=== PATIENT | female | born 1960 | race Caucasian/White ===

== ENCOUNTER 2020-09-16 04:48 | Emergency (ER) | payer BC ==
[~2020-09-16] VITALS: Ht 154.9 cm; Wt 58.5 kg
--- NOTE | 2020-09-16 05:00 | NUR ---
Dr. Burnham at bedside for MSE.
--- NOTE | 2020-09-16 05:18 | NUR ---
Xray at bedside.
--- NOTE | 2020-09-16 05:38 | NUR ---
Patient discharged to home in stable condition. Written and verbal after care instructions given. Patient verbalizes understanding of instructions. Stressed follow up or return to ER for worsening s/s. Patient out of ER with steady gait, no acute signs of distress, VSS, all belongings taken, provided a copy of xray results.
[2020-09-16 05:39] VITALS: BP 126/84
== END 2020-09-16 05:39 | disposition home or self-care (01) ==
LOC: ER 04:48
DX: R06.02 Shortness of breath (principal); G89.29 Other chronic pain; J44.9 Chronic obstructive pulmonary disease, unspecified; Z88.5 Allergy status to narcotic agent; Z88.0 Allergy status to penicillin; Z91.040 Latex allergy status; Z86.16 Personal history of COVID-19
CPT/HCPCS: 71045; A4663

== ENCOUNTER 2024-05-19 11:15 | Emergency (ER) | payer OTHER ==
[~2024-05-19] VITALS: Ht 157.5 cm; Wt 59.0 kg
[2024-05-19] MEDS ORDERED: ONDANSETRON 4 MG/2 ML VIAL ONE (11:47)
[2024-05-19] MEDS ORDERED: HYDROMORPHONE 1 MG/1 ML DISP.SYRIN ONE (11:48)
[2024-05-19 12:00] LABS: BASOPHILS % (AUTO) 0.4 % (0.0-2.0); EOSINOPHILS # (AUTO) 0.2 K/uL (0.0-0.7); EOSINOPHILS % (AUTO) 2.1 % (0.0-7.0); HEMATOCRIT 37.6 % (31.2-41.9); HEMOGLOBIN 12.8 g/dL (10.9-14.3); LYMPHOCYTES # (AUTO) 2.3 K/uL (0.8-4.8); LYMPHOCYTES % (AUTO) 22.8 % (20.5-51.5); MEAN CORPUSCULAR HEMOGLOBIN 30.9 uug (24.7-32.8); MEAN CORPUSCULAR HGB CONC 34 g/dL (32.3-35.6); MEAN CORPUSCULAR VOLUME 90.7 fL (75.5-95.3); MONOCYTES # (AUTO) 1.2 K/uL (0.1-1.30); MONOCYTES % (AUTO) 11.4 % (0.0-11.0); NEUTROPHILS # (AUTO) 6.5 K/uL (1.8-8.9); NEUTROPHILS % (AUTO) 63.3 % (38.5-71.5); PLATELET COUNT (AUTO) 291 K/uL (179-408); RED BLOOD CELL COUNT(AUTO) 4.14 MIL/uL (3.63-4.92); RED CELL DISTRIBUTION WIDTH 12.6 % (12.3-17.7); WHITE BLOOD COUNT (AUTO) 10.3 K/uL (3.8-11.8)
[2024-05-19 12:02] LABS: *BILIRUBIN,URIN NEGATIVE (NEGATIVE); *CLARITY,URINE CLEAR (CLEAR); *COLOR,URINE YELLOW (YELLOW); *KETONES,URINE TRACE (NEGATIVE); *PROTEIN,URINE 2+ (NEGATIVE); LEUKOCYTE ESTERASE ,URINE 1+ (NEGATIVE); NITRITE, URINE NEGATIVE (NEGATIVE); PH,URINE 6.5 (5.0-8.0); UGLUCOSE NEGATIVE (NEGATIVE)
[2024-05-19] MEDS: ONDANSETRON 4 MG/2 ML VIAL IV ONE (12:06)
[2024-05-19] MEDS: HYDROMORPHONE 1 MG/1 ML DISP.SYRIN IV ONE (12:06)
[2024-05-19 12:08] LABS: CALCIUM 8.9 mg/dL (8.5-10.1); CREATININE 0.7 mg/dL (0.6-1.3); MAGNESIUM 1.8 mg/dL (1.8-2.4); POTASSIUM 3.5 mmol/L (3.5-5.1)
[2024-05-19 12:18] LABS: DIFFERENTIAL COMMENT 1
[2024-05-19 12:19] LABS: *BLOOD, URINE TRACE (NEGATIVE); WBC,URINE 20-50 /HPF (0-3)
[2024-05-19 12:20] LABS: BACTERIA,URINE FEW /HPF (NONE SEEN); SQUAMOUS EPITHELIAL CELL,UR FEW /HPF (NONE SEEN)
[2024-05-19] MEDS ORDERED: CEFTRIAXONE /D5W 50ML IVPB **ER PYXIS IV ONE (13:42)
[2024-05-19] MEDS: CEFTRIAXONE 1 G in IV DEXTROSE 5% 50 ML IV ONE (13:50)
[2024-05-19] MEDS ORDERED: CEFD300C3 PO (13:53)
[2024-05-19] MEDS ORDERED: ALBU6.7H9 INH (13:53)
[2024-05-19] MEDS ORDERED: FLUC200T PO (13:53)
[2024-05-19 16:14] VITALS: BP 133/86; TEMP 98.9; O2SAT 95
== END 2024-05-19 16:16 | disposition home or self-care (01) ==
LOC: ER 11:15
DX: J40 Bronchitis, not specified as acute or chronic (principal); N20.0 Calculus of kidney; N39.0 Urinary tract infection, site not specified; R06.02 Shortness of breath; R10.32 Left lower quadrant pain; K58.9 Irritable bowel syndrome, unspecified; F17.200 Nicotine dependence, unspecified, uncomplicated; Z88.0 Allergy status to penicillin; Z88.5 Allergy status to narcotic agent; Z88.7 Allergy status to serum and vaccine
CPT/HCPCS: 99285; 74176; 96365; 96375; 71045; 80048; 81001; 83735; 85025; 36415; 87086; J0696; J2405; J1171; A4606; A4663

== ENCOUNTER 2024-12-22 20:26 | Emergency (ER) | payer OTHER ==
[~2024-12-22] VITALS: Ht 154.9 cm; Wt 57.6 kg
[~2024-12-22 20:26] MED LIST: ALBU6.7H9 INH; CEFD300C3 PO; FLUC200T PO
[2024-12-22 20:53] VITALS: O2SAT 98
== END 2024-12-22 22:36 | disposition left against medical advice (07) ==
LOC: ER 20:26
DX: M79.643 Pain in unspecified hand (principal); Z53.21 Procedure and treatment not carried out due to patient leaving prior to being seen by health care provider
CPT/HCPCS: A4606; A4663

== ENCOUNTER 2024-12-27 09:34 | Emergency (ER) | payer OTHER ==
[~2024-12-27] VITALS: Ht 154.9 cm; Wt 56.2 kg
[2024-12-27] MEDS ORDERED: HYDROCODONE/APAP 5-325MG TABLET ONE (10:19)
[2024-12-27] MEDS: HYDROCODONE/APAP 5-325MG TABLET PO ONE (10:22)
[2024-12-27] MEDS ORDERED: HYDR-3972 PO (11:59)
[2024-12-27 14:09] VITALS: BP 124/76; TEMP 97.7; O2SAT 99
== END 2024-12-27 14:10 | disposition home or self-care (01) ==
LOC: ER 09:34
DX: S52.592A Other fractures of lower end of left radius, initial encounter for closed fracture (principal); F17.200 Nicotine dependence, unspecified, uncomplicated; J44.9 Chronic obstructive pulmonary disease, unspecified; K58.9 Irritable bowel syndrome, unspecified; Z59.01 Sheltered homelessness; Z87.442 Personal history of urinary calculi; Z88.5 Allergy status to narcotic agent; Z88.7 Allergy status to serum and vaccine; X58.XXXA Exposure to other specified factors, initial encounter; Y93.89 Activity, other specified; Y92.89 Other specified places as the place of occurrence of the external cause; Y99.8 Other external cause status
CPT/HCPCS: 73100; A4606; A4663